=== PATIENT | female | born 1990 | race Caucasian/White ===

== ENCOUNTER 2017-12-21 18:02 | Emergency (ER) | payer MEDICAID, SELFPAY ==
[2017-12-21 18:03] VITALS: BP 181/116; PULSE 88; RESP 16; TEMP 36.6; O2SAT 100; BMI 38.4
--- NOTE | 2017-12-21 19:25 | NURSING ---
PT ARRIVES C/O N/T TO ALL LEFT EXTREMITIES, SHAKIRA LEFT FOOT AN ELBOW, INCLUDING PINS/NEEDLES. ALSO REPORTS INCREASE IN PAIN TO KNEES ELBOWS AND BACK. 6-8 WEEKS . OBGYN RECOMMENDED ED IF NO RELIEF WAS FOUND BY TODAY. REPORTS INCREASE IN FORGETFULNESS.
[2017-12-21 21:12] VITALS: BP 210/130
--- NOTE | 2017-12-21 21:19 | EKG12_ITS ---
Test Reason : NUMBNESS/TINGLING Blood Pressure : / mmHG Vent. Rate : 078 BPM Atrial Rate : 078 BPM P-R Int : 146 ms QRS Dur : 086 ms QT Int : 394 ms P-R-T Axes : 006 068 036 degrees QTc Int : 449 ms Normal sinus rhythm Normal ECG Confirmed by SHITAL WOODY MD ([id number]), television news video editor JOANNA DE LA ROSA ([id number]) on 12/26/2017 2:23:57 PM Referred By: AYUSH Confirmed By:SHITAL WOODY MD
--- NOTE | 2017-12-21 21:22 | ED.RN ---
NO OLD EKG'S IN MUSE
[2017-12-21 21:23] VITALS: BP 190/108
--- NOTE | 2017-12-21 21:25 | RAD_ITS ---
STUDY: X-RAY CHEST REASON FOR EXAM: Female, 27 years old. Pain TECHNIQUE: Frontal view of the chest COMPARISON: None. FINDINGS: The lungs are clear. There are no pleural effusions. There is no pneumothorax. The heart is normal in size. The visualized osseous structures are within normal limits. RAD/Chest 1 View (Portable) IMPRESSION: No acute thoracic pathology. Electronically Signed: Be Lopez, at 21:46 EST Tel , Service support ,
[2017-12-21 21:39] LABS: Absolute Lymphocyte Count 2.53 X10^3/ul (0.83-4.51); Absolute Neutrophil Count 5.5 X10^3/uL (2.0-7.7); Basophil# 0.02 X10^3/uL; Basophil% 0.2 % (0-1); Eosinophil# 0.23 X10^3/uL; Eosinophils% 2.6 % (0-5); Hematocrit 38.8 % (37-47); Hemoglobin 12.9 g/dl (12.0-15.0); Lymphocyte # 2.53 X10^3/ul (4.0); Lymphocyte % 28.7 % (19-41); Mean Corp Hgb Conc 33.2 g/gl (32-36); Mean Corpuscular Hgb 30.6 pg (27.0-32.0); Mean Corpuscular Volume 92.2 fL (81-99); Mean Platelet Vol. 10.4 fl (6.2-12.0); Monocyte# 0.49 X10^3/uL; Monocyte% 5.6 % (0-10); Neutrophil # 5.52 X10^3/uL (2.7-7.7); Neutrophil % 62.7 % (47-70); Platelet Count 185 K/mm3 (150-450); RBC Distribution Width CV 13.5 % (11.6-14.6); RBC Distribution Width SD 44.8 fl (35.1-43.9); Red Blood Count 4.21 M/mm3 (4.2-5.4); White Blood Count 8.8 K/mm3 (4.4-11.0)
[2017-12-21 21:41] LABS: POSITIVE COUNT NO; POSITIVE DIFFERENTIAL NO; POSITIVE MORPHOLOGY NO
[2017-12-21 21:45] LABS: International Normalized Ratio 1.1; Prothrombin Time (Protime)PT. 13.8 SECONDS (11.7-14.9)
[2017-12-21 21:54] LABS: ALB/GLOB Ratio 1.2 RATIO (0.9-2.4); AST(SGOT) 21 U/L (15-37); Alanine Aminotransfer ALT/SGPT 17 U/L (13-56); Albumin, Serum 3.6 g/dL (3.2-5.0); Alkaline Phosphatase 56 U/L (45-117); Anion Gap 6 (5-15); BUN 5 mg/dL (7-18); BUN/Creat Ratio 6.5 RATIO (10-20); Calcium,Total 8.1 mg/dL (8.5-10.1); Chloride 108 mmol/L (98-107); Creatinine, Serum 0.77 mg/dL (0.55-1.02); EST Glomerular Filtration Rate 95 mL/min (>60); Est Glom Filt Rate - Afr Amer 115 mL/min (>60); Estimated Creatinine Clearance 87.57 ml/min; Globulin 3.1 g/dL (2.2-4.2); Glucose 87 mg/dL (74-106); Potassium 3.7 mmol/L (3.5-5.1); Protein, Total 6.7 g/dL (6.4-8.2); Sodium Level 141 mmol/L (136-145)
[2017-12-21 22:25] LABS: Mucous, Urine 0 SEEN /hpf (<or=2+)
[2017-12-21 22:29] LABS: Color, Urine Yellow (Yellow); Glucose, Dipstick Normal (Normal); Ketone-Dipstick Negative (Negative); Leukocyte Esterase-Dipstick 25 /ul (Negative); Nitrite-Dipstick Positive (Negative); Occult Blood-Urine 25 /ul (Negative); Protein-Dipstick Negative (Negative); Urine Bilirubin Dipstick Negative (Negative); Urine Clarity Cloudy (Clear); Urine Urobilinogen Normal (Normal)
[2017-12-21 22:35] LABS: Bacteria 3+ /hpf (None Seen); Red Blood Cells-Urine 0-5 SEEN /hpf (0-5); Squamous Epithelial Cells - UA 0-5 SEEN /hpf (5-10); White Blood Cells 0-5 SEEN /hpf (0-5)
--- NOTE | 2017-12-21 22:46 | US_ITS ---
STUDY: VENOUS DOPPLER ULTRASOUND - BILATERAL LOWER EXTREMITIES REASON FOR EXAM: Female, 27 years old. Pain and swelling TECHNIQUE: Ultrasound evaluation of the deep vein system to include bansal-scale imaging and compression was performed. Bansal-scale imaging and Doppler sonographic evaluation, including duplex spectral analysis and qualitative color flow sonography, was performed. COMPARISON: None. FINDINGS: RIGHT LEG Common Femoral Vein: Normal compression, spontaneity and augmentation. Normal color Doppler. Common Femoral Vein/Greater Saphenous Junction: Normal compression, spontaneity and augmentation. Normal color Doppler. Deep Femoral Vein: Normal compression, spontaneity and augmentation. Normal color Doppler. Superficial Femoral Proximal: Normal compression, spontaneity and augmentation. Normal color Doppler. Superficial Femoral Middle: Normal compression, spontaneity and augmentation. Normal color Doppler. Superficial Femoral Distal: Normal compression, spontaneity and augmentation. Normal color Doppler. Popliteal Vein: Normal compression, spontaneity and augmentation. Normal color Doppler. Posterior Tibial Vein: Normal compression, spontaneity and augmentation. Normal color Doppler. Peroneal Vein: Normal compression, spontaneity and augmentation. Normal color Doppler. The visualized soft tissues are unremarkable. LEFT LEG Common Femoral Vein: Normal compression, spontaneity and augmentation. Normal color Doppler. Common Femoral Vein/Greater Saphenous Junction: Normal compression, spontaneity and augmentation. Normal color Doppler. Deep Femoral Vein: Normal compression, spontaneity and augmentation. Normal color Doppler. Superficial Femoral Proximal: Normal compression, spontaneity and augmentation. Normal color Doppler. Superficial Femoral Middle: Normal compression, spontaneity and augmentation. Normal color Doppler. Superficial Femoral Distal: Normal compression, spontaneity and augmentation. Normal color Doppler. Popliteal Vein: Normal compression, spontaneity and augmentation. Normal color Doppler. Posterior Tibial Vein: Normal compression, spontaneity and augmentation. Normal color Doppler. Peroneal Vein: Normal compression, spontaneity and augmentation. Normal color Doppler. The visualized soft tissues are unremarkable. US/Venous Duplex Imag/Dewayne Extrem IMPRESSION: Normal venous Doppler ultrasound of the bilateral lower extremities. Electronically Signed: Be Lopez, at 23:38 EST Tel , Service support ,
--- NOTE | 2017-12-21 23:53 | ED.VISSUMM ---
- ER Visit Summary Date of Service: 12/21/17 Chief Complaint: Bilateral leg pain History of Present Illness: The patient is a 27 F who presents with bilateral leg pain. She complains of aching lower back pain which radiates into the buttocks left greater than right she also gets aching pain down her legs and gets a pins and needles sensation or numbness at times. She denies any fever abdominal pain urinary retention fecal incontinence back surgeries or history of IV drug use. Physical Examination: Initial blood pressure 181/116 vitals otherwise unremarkable Moist mucous membranes Heart regular rate and rhythm Lungs clear Abdomen soft Paraspinal lumbar tenderness no midline pain Tenderness of bilateral legs but no edema no erythema easily palpable bilateral dorsalis pedis pulses with brisk capillary refill normal sensation 5 out of 5 dorsiflexion, plantarflexion, extensor hallucis longus negative straight leg raise bilaterally Test Results: EKG shows sinus rhythm at a rate of 78. CBC CMP unremarkable. INR 1.1. Urinalysis shows positive nitrites and 3+ bacteria. Chest x-ray shows no acute process. Venous duplex negative. Emergency Department Course and Treatment: Patient's leg symptoms are consistent with a lumbar radiculopathy. She has no signs or symptoms of acute surgical pathology such as epidural abscess or cauda equina syndrome. She is neurovascularly intact with no edema strong pulses and negative venous duplexes. She does have severely elevated blood pressure. However she does not have symptoms of this such as chest pain shortness of breath lightheadedness or headache. EKG was normal. I did speak to Dr. Hernandez and the patient will follow up with [facility] as an outpatient. We will start the patient on labetalol. Patient was given prescriptions for labetalol as well as macrobid for a UTI and prednisone for lumbar radiculopathy. She understands return for new or worsening symptoms. She will be signed out to the oncoming physician to reevaluate after dose of labetalol here but if improving she can be discharged. Treatment Plan: [] Disposition: Discharge Impression: Lumbar radiculopathy Hypertension UTI This note was generated with [employer] dictation software. It may contain incorrect words, spelling, and punctuation that were not noted in review of the chart prior to signing ED Disposition - Plan for ED Patient: Chief Complaint: Numb/Ting Referrals: Lexis Lewis NP-C [Primary Care Provider] -
--- NOTE | 2017-12-21 23:57 | ED.DCSUM_ITS ---
- ER Visit Summary Date of Service: 12/21/17 Chief Complaint: Bilateral leg pain History of Present Illness: The patient is a 27 F who presents with bilateral leg pain. She complains of aching lower back pain which radiates into the buttocks left greater than right she also gets aching pain down her legs and gets a pins and needles sensation or numbness at times. She denies any fever abdominal pain urinary retention fecal incontinence back surgeries or history of IV drug use. Physical Examination: Initial blood pressure 181/116 vitals otherwise unremarkable Moist mucous membranes Heart regular rate and rhythm Lungs clear Abdomen soft Paraspinal lumbar tenderness no midline pain Tenderness of bilateral legs but no edema no erythema easily palpable bilateral dorsalis pedis pulses with brisk capillary refill normal sensation 5 out of 5 dorsiflexion, plantarflexion, extensor hallucis longus negative straight leg raise bilaterally Test Results: EKG shows sinus rhythm at a rate of 78. CBC CMP unremarkable. INR 1.1. Urinalysis shows positive nitrites and 3+ bacteria. Chest x-ray shows no acute process. Venous duplex negative. Emergency Department Course and Treatment: Patient's leg symptoms are consistent with a lumbar radiculopathy. She has no signs or symptoms of acute surgical pathology such as epidural abscess or cauda equina syndrome. She is neurovascularly intact with no edema strong pulses and negative venous duplexes. She does have severely elevated blood pressure. However she does not have symptoms of this such as chest pain shortness of breath lightheadedness or headache. EKG was normal. I did speak to Dr. Hernandez and the patient will follow up with [facility] as an outpatient. We will start the patient on labetalol. Patient was given prescriptions for labetalol as well as macrobid for a UTI and prednisone for lumbar radiculopathy. She understands return for new or worsening symptoms. She will be signed out to the oncoming physician to reevaluate after dose of labetalol here but if improving she can be discharged. Treatment Plan: [] Disposition: Discharge Impression: Lumbar radiculopathy Hypertension UTI This note was generated with [employer] dictation software. It may contain incorrect words, spelling, and punctuation that were not noted in review of the chart prior to signing ED Disposition - Plan for ED Patient: Chief Complaint: Numb/Ting Referrals: Lexis Lewis NP-C [Primary Care Provider] -
--- NOTE | 2017-12-21 23:57 | ED.DEP ---
ED Disposition - Plan for ED Patient: Chief Complaint: Numb/Ting Instructions: ED Sciatica, ED Hypertension Poss, ED UTI Cystitis Female Prescriptions: Nitrofurantoin Macrocrystals [Macrobid] 100 mg PO Q12 #14 cap Prednisone [Deltasone] 60 mg PO DAILY #15 tab Labetalol [Trandate (Beta Dion)] 100 mg PO BID #60 tab Referrals: Lexis Lewis, AIDEN-C [Primary Care Provider] - Maria Isabel Larson MD [STAFF PHYSICIAN] -
[2017-12-22 00:11] VITALS: BP 172/91; PULSE 78; RESP 17
[2017-12-22] MEDS: Labetalol 100 MG Tablet PO (00:11)
[2017-12-22] MEDS: Acetaminophen 500 MG Tablet 1000 MG PO (00:34)
--- NOTE | 2017-12-22 01:20 | ED.VISSUMM ---
- ER Visit Summary Date of Service: 12/22/17 Addendum: Patient was checked out maybe for a period of observation following labetalol. Her blood pressures decreased to 172/91. She continues to complain of severe back pain despite the Tylenol. She is given a dose of morphine IV. Treatment Plan: The patient will be discharged on Motrin and Percocet for pain. Follow-up as per Dr. Hernandez's dictation. This note was generated with [employer] dictation software. It may contain incorrect words, spelling, and punctuation that were not noted in review of the chart prior to signing ED Disposition - Plan for ED Patient: Chief Complaint: Numb/Ting Instructions: ED Hypertension Poss, ED Sciatica, ED UTI Cystitis Female Prescriptions: Oxycodone HCl/Acetaminophen [Percocet 5/325] 1 tab PO Q6H PRN PRN 3 Days #12 tab PRN Reason: Pain Ibuprofen [Motrin] 800 mg PO TID PRN PRN #20 tab PRN Reason: Pain Nitrofurantoin Macrocrystals [Macrobid] 100 mg PO Q12 #14 cap Prednisone [Deltasone] 60 mg PO DAILY #15 tab Labetalol [Trandate (Beta Dion)] 100 mg PO BID #60 tab Referrals: Maria Isabel Larson MD [STAFF PHYSICIAN] - Lexis Lewis NP-C [Primary Care Provider] -
[2017-12-22] MEDS: Ketorolac 30 MG/ML Syringe IV (01:27)
[2017-12-22] MEDS: oxyCODONE 5 MG Tablet PO (01:32)
[2017-12-22 01:45] VITALS: BP 158/67; PULSE 72; RESP 18; O2SAT 98
== END 2017-12-22 02:24 | disposition home or self-care (01) ==
PROVIDERS: Emergency Provider Emergency Medicine; Family Provider Nurse Practitioner Family; PCP Nurse Practitioner Family
DX: O26.891 Other specified pregnancy related conditions, first trimester (principal); M54.16 Radiculopathy, lumbar region; O23.41 Unspecified infection of urinary tract in pregnancy, first trimester; O16.1 Unspecified maternal hypertension, first trimester; Z3A.01 Less than 8 weeks gestation of pregnancy
CPT/HCPCS: 71045; 80053; 81001; 85025; 85610; 93005; 93970; 96374; 96375; 99285; A4216

== ENCOUNTER → 2017-12-23 14:05 | Outpatient (CLI) | payer MEDICAID, SELFPAY ==
[2017-12-23 20:52] LABS: Chlamydia Trachomatis by PCR Negative (Negative); Neisserai gonorrhoeae by PCR Negative (Negative); Probe Check PASS; Sample Adequacy Control PASS; Specimen Processing Control PASS
[2018-01-02 14:52] LABS: HPV Reflexed? NOT INDICATED
== END ==
PROVIDERS: Visit Provider Obstetrics & Gynecology
DX: Z11.3 Encounter for screening for infections with a predominantly sexual mode of transmission (principal); Z12.4 Encounter for screening for malignant neoplasm of cervix
CPT/HCPCS: 87491; 87591; 88175; G0145

== ENCOUNTER 2017-12-24 22:25 | Emergency (ER) | payer MEDICAID, SELFPAY ==
[2017-12-24 22:25] VITALS: BP 208/119; PULSE 90; RESP 18; TEMP 36.4; O2SAT 97; BMI 38.2
--- NOTE | 2017-12-24 22:50 | ED.VISSUMM ---
- ER Visit Summary Date of Service: 12/24/17 Chief Complaint: Elevated blood pressure History of Present Illness: The patient is a 27 F no significant past medical history. She is Ab0. Never had hypertension with her other 2 pregnancies. Was seen in the ER 2 days ago diagnosed with hypertension and placed on labetalol. She is also been having low back pain. She is followed up with her [employer] Dr. Christal Jackson she is adjusted her labetalol dose. Patient denies any other symptoms no headache. No chest pain. No shortness of breath. No abdominal pain. No vaginal bleeding. She presents tonight again with elevated blood pressure. Physical Examination: Well-appearing young female. Her initial blood pressures reportedly 208/119. Otherwise her vital signs are stable afebrile. Her pulse ox is 97%. She is in no distress. Having no other symptoms. HEENT exam is normal. Neck is nontender no lymphadenopathy. Lungs are clear to auscultation bilaterally. Heart is regular rhythm no murmur. Abdomen is soft and nontender. Normal bowel sounds no peritoneal signs. Extremities she moves all 4. They are neurovascularly intact. She has normal motor strength and sensation of both the upper and lower extremities. Normal dorsi plantarflexion. Normal detonator assembler strength. There is no edema. Back exam is nontender unremarkable. Neurologically she is awake and alert without focal motor or sensory deficits. Test Results: Clinically no tests are necessary. Emergency Department Course and Treatment: Nurses will repeat the patient's blood pressure. Repeat exam at 2330 the patient's blood pressure is 158/93. I discussed with the patient and her female friend in the room. He can continue on her current blood pressure medications. Log her blood pressures twice daily and follow-up with her [employer] TEAM LEAD to adjust her medications as needed. Treatment Plan: [] Disposition: Discharge Impression: Elevated blood pressure with recent diagnosis of hypertension First trimester This note was generated with [employer] dictation software. It may contain incorrect words, spelling, and punctuation that were not noted in review of the chart prior to signing ED Disposition - Plan for ED Patient: Chief Complaint: Hypertension Referrals: Lexis Lewis, AIDEN-C [Primary Care Provider] -
--- NOTE | 2017-12-24 23:32 | ED.DCSUM_ITS ---
- ER Visit Summary Date of Service: 12/24/17 Chief Complaint: Elevated blood pressure History of Present Illness: The patient is a 27 F no significant past medical history. She is Ab0. Never had hypertension with her other 2 pregnancies. Was seen in the ER 2 days ago diagnosed with hypertension and placed on labetalol. She is also been having low back pain. She is followed up with her [facility] Dr. Christal Jackson she is adjusted her labetalol dose. Patient denies any other symptoms no headache. No chest pain. No shortness of breath. No abdominal pain. No vaginal bleeding. She presents tonight again with elevated blood pressure. Physical Examination: Well-appearing young female. Her initial blood pressures reportedly 208/119. Otherwise her vital signs are stable afebrile. Her pulse ox is 97%. She is in no distress. Having no other symptoms. HEENT exam is normal. Neck is nontender no lymphadenopathy. Lungs are clear to auscultation bilaterally. Heart is regular rhythm no murmur. Abdomen is soft and nontender. Normal bowel sounds no peritoneal signs. Extremities she moves all 4. They are neurovascularly intact. She has normal motor strength and sensation of both the upper and lower extremities. Normal dorsi plantarflexion. Normal suspender cutter strength. There is no edema. Back exam is nontender unremarkable. Neurologically she is awake and alert without focal motor or sensory deficits. Test Results: Clinically no tests are necessary. Emergency Department Course and Treatment: Nurses will repeat the patient's blood pressure. Repeat exam at 2330 the patient's blood pressure is 158/93. I discussed with the patient and her female friend in the room. He can continue on her current blood pressure medications. Log her blood pressures twice daily and follow-up with her [facility] to adjust her medications as needed. Treatment Plan: [] Disposition: Discharge Impression: Elevated blood pressure with recent diagnosis of hypertension First trimester This note was generated with [employer] dictation software. It may contain incorrect words, spelling, and punctuation that were not noted in review of the chart prior to signing ED Disposition - Plan for ED Patient: Chief Complaint: Hypertension Referrals: Lexis Lewis, AIDEN-C [Primary Care Provider] -
--- NOTE | 2017-12-24 23:33 | DCINST.ED_ITS ---
ED Disposition - Plan for ED Patient: Disposition: Home or Assisted Living Chief Complaint: Hypertension Instructions: ED HTN Established Referrals: Maria Isabel Larson MD [STAFF PHYSICIAN] - As soon as possible Additional Instructions: Log your blood pressures twice daily. Follow-up with her primary [employer] WORK[employer]PRENT[employer] physician and she can adjust her medications as needed.
[2017-12-24 23:37] VITALS: BP 165/97; PULSE 84; RESP 16
--- NOTE | 2017-12-24 23:57 | ED.RN ---
DISCHARGE INSTRUCTIONS GIVEN TO AND REVIEWED WITH PATIENT, PATIENT DENIES QUESTIONS OR CONCERNS AND VOICES UNDERSTANDING OF DISCHARGE INSTRUCTIONS. PT AMBULATES OUT OF ROOM WITHOUT DIFFICULTY.
== END 2017-12-24 23:58 | disposition home or self-care (01) ==
PROVIDERS: Emergency Provider Emergency Medicine; Family Provider Nurse Practitioner Family; PCP Nurse Practitioner Family
DX: O16.1 Unspecified maternal hypertension, first trimester (principal); O99.331 Smoking (tobacco) complicating pregnancy, first trimester; Z79.891 Long term (current) use of opiate analgesic; Z79.899 Other long term (current) drug therapy; Z3A.08 8 weeks gestation of pregnancy

== ENCOUNTER → 2018-01-04 09:01 | Outpatient (CLI) | payer MEDICAID, SELFPAY ==
[2018-01-04 10:45] LABS: Color, Urine Yellow (Yellow); Glucose, Dipstick Normal (Normal); Ketone-Dipstick Negative (Negative); Leukocyte Esterase-Dipstick 25 /ul (Negative); Nitrite-Dipstick Negative (Negative); Occult Blood-Urine Negative /ul (Negative); Protein-Dipstick Negative (Negative); Urine Bilirubin Dipstick Negative (Negative); Urine Clarity Clear (Clear); Urine Urobilinogen Normal (Normal)
[2018-01-04 10:57] LABS: Absolute Lymphocyte Count 0.97 X10^3/ul (0.83-4.51); Absolute Neutrophil Count 5.1 X10^3/uL (2.0-7.7); Basophil# 0.02 X10^3/uL; Basophil% 0.3 % (0-1); Eosinophil# 0.22 X10^3/uL; Eosinophils% 3.3 % (0-5); Hematocrit 36.3 % (37-47); Hemoglobin 12.2 g/dl (12.0-15.0); Lymphocyte # 0.97 X10^3/ul (4.0); Lymphocyte % 14.4 % (19-41); Mean Corp Hgb Conc 33.6 g/gl (32-36); Mean Corpuscular Hgb 30.9 pg (27.0-32.0); Mean Corpuscular Volume 91.9 fL (81-99); Mean Platelet Vol. 10.3 fl (6.2-12.0); Monocyte# 0.39 X10^3/uL; Monocyte% 5.8 % (0-10); Neutrophil # 5.12 X10^3/uL (2.7-7.7); Neutrophil % 76.1 % (47-70); Platelet Count 142 K/mm3 (150-450); RBC Distribution Width CV 13.3 % (11.6-14.6); RBC Distribution Width SD 44.4 fl (35.1-43.9); Red Blood Count 3.95 M/mm3 (4.2-5.4); White Blood Count 6.7 K/mm3 (4.4-11.0)
[2018-01-04 10:58] LABS: POSITIVE COUNT NO; POSITIVE DIFFERENTIAL NO; POSITIVE MORPHOLOGY NO
[2018-01-04 11:16] LABS: Amphetamine Urine VISTA NEGATIVE (<1000 ng/mL); Barbiturate Urine VISTA NEGATIVE (< 200 ng/mL); Benzodiazepine Urine VISTA NEGATIVE (< 200 ng/mL); Cocaine Urine VISTA NEGATIVE (< 300 ng/mL); Ecstacy Urine VISTA POSITIVE (< 500 ng/mL); Methadone Urine VISTA NEGATIVE (< 300 ng/mL); PCP Urine VISTA NEGATIVE (< 25 ng/mL); THC Urine VISTA NEGATIVE (< 50 ng/mL); Vista UDS pH Range 7
[2018-01-04 11:18] LABS: ALB/GLOB Ratio 1.1 RATIO (0.9-2.4); AST(SGOT) 9 U/L (15-37); Alanine Aminotransfer ALT/SGPT 20 U/L (13-56); Albumin, Serum 3.4 g/dL (3.2-5.0); Alkaline Phosphatase 59 U/L (45-117); Anion Gap 8 (5-15); BUN 10 mg/dL (7-18); BUN/Creat Ratio 14.4 RATIO (10-20); Calcium,Total 8.2 mg/dL (8.5-10.1); Chloride 106 mmol/L (98-107); Creatinine, Serum 0.69 mg/dL (0.55-1.02); EST Glomerular Filtration Rate 108 mL/min (>60); Est Glom Filt Rate - Afr Amer 131 mL/min (>60); Globulin 3.1 g/dL (2.2-4.2); Glucose 82 mg/dL (74-106); Potassium 3.4 mmol/L (3.5-5.1); Protein, Total 6.5 g/dL (6.4-8.2); Sodium Level 139 mmol/L (136-145); Thyroid Stim Hormone (TSH) 0.92 uIU/mL (0.358-3.74)
[2018-01-04 12:39] LABS: HIV - WCH Non-Reactive (Nonreactive); Rubella IgG 89.4 IU/mL
[2018-01-05 12:57] LABS: HEPATITIS B SURFACE AG Negative (Negative); Hep C Antibodies 0.1 s/co ratio (0.0-0.9)
[2018-01-06 03:11] LABS: Prenatal RPR NONREACTIVE (NONREACTIVE)
== END ==
PROVIDERS: Visit Provider Obstetrics & Gynecology
DX: O16.9 Unspecified maternal hypertension, unspecified trimester (principal); Z3A.00 Weeks of gestation of pregnancy not specified
CPT/HCPCS: 36415; 80053; 80307; 81002; 84443; 85025; 86703; 86762; 86803; 87340

== ENCOUNTER → 2018-01-05 09:52 | Outpatient (CLI) | payer MEDICAID, SELFPAY | PROVIDERS: Family Provider Family Medicine; PCP Family Medicine; Visit Provider Family Medicine | DX: O99.89 Other specified diseases and conditions complicating pregnancy, childbirth and the puerperium (principal); R82.71 Bacteriuria; Z3A.00 Weeks of gestation of pregnancy not specified; O16.9 Unspecified maternal hypertension, unspecified trimester | CPT/HCPCS: 81050; 82384; 83835; 87086; 87088; 87186 ==

== ENCOUNTER → 2018-01-05 10:26 | Outpatient (CLI) | payer MEDICAID, SELFPAY ==
[2018-01-11 09:09] LABS: Dopamine, UR 89 ug/L (Undefined); Epinephrine, 24Ur 2 ug/24 hr (0-20); Epinephrine, Ur 1 ug/L (Undefined); Metanephrine, Ur 30 ug/L (Undefined); Norepinephrine, 24Ur 22 ug/24 hr (0-135); Norepinephrine, Ur 13 ug/L (Undefined); Normetanephrines, Ur 108 ug/L (Undefined)
[2018-01-12 15:28] LABS: Dopamine, 24Ur 151 ug/24 hr (0-510); Metanephrines, 24Ur 51 ug/24 hr (45-290); Normetanephrines, 24Ur 184 ug/24 hr (82-500)
== END ==
PROVIDERS: Visit Provider Obstetrics & Gynecology
DX: I10 Essential (primary) hypertension (principal)
CPT/HCPCS: 81050; 82384; 83835

== ENCOUNTER → 2018-01-06 15:56 | Outpatient (CLI) | payer MEDICAID, SELFPAY ==
[2018-01-11 03:07] LABS: VMA, UR 1.3 mg/L (Undefined)
[2018-01-11 11:25] LABS: VMA, 24UR 2.7 mg/24 hr (0.0-7.5)
== END ==
PROVIDERS: Visit Provider Obstetrics & Gynecology
DX: O16.9 Unspecified maternal hypertension, unspecified trimester (principal); Z3A.00 Weeks of gestation of pregnancy not specified
CPT/HCPCS: 81050; 84585

== ENCOUNTER → 2018-01-17 14:56 | Outpatient (CLI) | payer MEDICAID, SELFPAY | PROVIDERS: Family Provider Family Medicine; PCP Family Medicine; Visit Provider Obstetrics & Gynecology | DX: O16.1 Unspecified maternal hypertension, first trimester (principal); O99.280 Endocrine, nutritional and metabolic diseases complicating pregnancy, unspecified trimester; E03.9 Hypothyroidism, unspecified; Z3A.00 Weeks of gestation of pregnancy not specified | CPT/HCPCS: 36415; 82306; 87086; 87088; 87186 ==

== ENCOUNTER → 2018-02-14 14:20 | Outpatient (CLI) | payer MEDICAID, SELFPAY | PROVIDERS: Visit Provider Obstetrics & Gynecology | DX: O23.40 Unspecified infection of urinary tract in pregnancy, unspecified trimester (principal); Z3A.00 Weeks of gestation of pregnancy not specified | CPT/HCPCS: 87086; 87088; 87186 ==

== ENCOUNTER → 2018-03-31 13:12 | Outpatient (CLI) | payer MEDICAID, SELFPAY | PROVIDERS: Family Provider Family Medicine; PCP Family Medicine; Visit Provider Obstetrics & Gynecology | DX: Z34.82 Encounter for supervision of other normal pregnancy, second trimester (principal); N39.0 Urinary tract infection, site not specified | CPT/HCPCS: 87086; 87088; 87186 ==

== ENCOUNTER → 2018-04-20 16:46 | Outpatient (CLI) | payer MEDICAID, SELFPAY ==
[2018-04-20 17:41] LABS: Hematocrit 32.3 % (37-47); Hemoglobin 10.9 g/dl (12.0-15.0); Mean Corp Hgb Conc 33.7 g/gl (32-36); Mean Corpuscular Hgb 32.1 pg (27.0-32.0); Mean Platelet Vol. 10.7 fl (6.2-12.0); Platelet Count 206 K/mm3 (150-450); RBC Distribution Width CV 12.7 % (11.6-14.6); RBC Distribution Width SD 42.9 fl (35.1-43.9); White Blood Count 11.6 K/mm3 (4.4-11.0)
[2018-04-20 17:43] LABS: Scan Indicated on CBC? Y/N NO
[2018-04-20 18:09] LABS: ALB/GLOB Ratio 0.7 RATIO (0.9-2.4); AST(SGOT) 10 U/L (15-37); Alanine Aminotransfer ALT/SGPT 13 U/L (13-56); Albumin, Serum 2.8 g/dL (3.2-5.0); Alkaline Phosphatase 74 U/L (45-117); Anion Gap 8 (5-15); BUN 8 mg/dL (7-18); BUN/Creat Ratio 8.7 RATIO (10-20); Calcium,Total 9.4 mg/dL (8.5-10.1); Chloride 105 mmol/L (98-107); Creatinine, Serum 0.92 mg/dL (0.55-1.02); EST Glomerular Filtration Rate 78 mL/min (>60); Est Glom Filt Rate - Afr Amer 95 mL/min (>60); Globulin 3.8 g/dL (2.2-4.2); Glucose 80 mg/dL (74-106); Potassium 3.6 mmol/L (3.5-5.1); Protein, Total 6.6 g/dL (6.4-8.2); Sodium Level 140 mmol/L (136-145); Uric Acid 5.4 mg/dL (2.6-6.0)
[2018-04-21 14:35] LABS: Ferritin 18 ng/mL (8-252)
== END ==
PROVIDERS: Visit Provider Obstetrics & Gynecology
DX: Z34.82 Encounter for supervision of other normal pregnancy, second trimester (principal); I10 Essential (primary) hypertension; D64.9 Anemia, unspecified
CPT/HCPCS: 36415; 80053; 82728; 84550; 85027

== ENCOUNTER → 2018-04-25 11:54 | Outpatient (CLI) | payer MEDICAID, SELFPAY ==
--- NOTE | 2018-04-25 12:33 | ECHOD_ITS ---
Reason For Study: HTN Procedure This was a 2D Doppler, Color Flow transthoracic echocardiogram. The exam was of adequate technical quality. Exam performed in department. Left Ventricle Normal LV size. Moderate to severe concentric left ventricular hypertrophy. Left ventricular systolic function is normal. Diastolic function: considered indeterminate. No regional wall motion abnormalities noted. Right Ventricle Normal RV size. Normal systolic function. Atria The left atrium is mildly enlarged. Normal right atrium. No doppler evidence for ASD. Mitral Valve There is no mitral annular calcification. Normal mitral valve. Trivial mitral valve insufficiency. Tricuspid Valve Normal tricuspid valve. Trivial tricuspid valve insufficiency. Aortic Valve Trisinus/trileaflet aortic valve. Normal aortic valve. Pulmonic Valve The pulmonic valve is not well visualized. Trivial pulmonic valve insufficiency. Great Vessels Normal sized aortic root. Pericardium/Pleural Trivial pericardial effusion. There are no echocardiographic indications of cardiac tamponade. MMode/2D Measurements & Calculations LVIDd: 4.8 cm IVSd: 1.8 cm Ao root diam: 3.0 cm LVIDs: 3.2 cm LVPWd: 1.6 cm FS: 34.8 % LAV(MOD-bp): 76.8 ml LA A4 area: 21.7 cm2 RA A4 area: 12.9 cm2 LAV(MOD-bp) Indexed: 38.8 ml/m2 LAV(MOD-sp2): 83.1 ml LAV(MOD-sp4): 71.9 ml Doppler Measurements & Calculations MV E max dave: 71.2 cm/sec Lat Peak E' Dave: 7.7 cm/sec Med Peak E' Dave: 6.0 cm/sec MV A max dave: 60.9 cm/sec E/E' lat: 9.3 E/E' med: 11.8 MV E/A: 1.2 Ao V2 max: 147.5 cm/sec LV V1 max: 106.1 cm/sec PA V2 max: 89.8 cm/sec Ao max P.7 mmHg LV V1 max P.5 mmHg Interpretation Summary Left ventricular systolic function is normal. Moderate to severe concentric left ventricular hypertrophy. The left atrium is mildly enlarged. Trivial mitral valve insufficiency. Trivial tricuspid valve insufficiency. Trivial pulmonic valve insufficiency. Trivial pericardial effusion. There are no echocardiographic indications of cardiac tamponade. Diastolic function: considered indeterminate. Ordering Physician: Maria Isabel Larson Referring Physician: Claritza Olmedo Performed By: Anayeli Luke RDCS
[2018-04-25 12:51] LABS: 24 Hour Urine Protein 277.1 mg/24HR (<150 MG/24HR); 24HR. UA Prot. Total Volume 1700 mL; 24HR. Urine Creatinine 1.11 g/24 HR (0.70-1.90); Urine Protein (24 Hour) 16.3 mg/dL (<11.9)
--- NOTE | 2018-04-25 13:14 | EKG12_ITS ---
Test Reason : HTN Blood Pressure : / mmHG Vent. Rate : 081 BPM Atrial Rate : 081 BPM P-R Int : 178 ms QRS Dur : 084 ms QT Int : 386 ms P-R-T Axes : 052 084 025 degrees QTc Int : 448 ms Normal sinus rhythm Normal ECG Confirmed by ANNALISE MONTES, SHITAL ([id number]), newspaper copy editor JOANNA DE LA ROSA ([id number]) on 05/01/2018 2:05:40 PM Referred By: Maria Isabel Larson Confirmed By:SHITAL WOODY MD
== END ==
PROVIDERS: Family Provider Family Medicine; PCP Family Medicine; Visit Provider Obstetrics & Gynecology
DX: O16.2 Unspecified maternal hypertension, second trimester (principal); Z3A.00 Weeks of gestation of pregnancy not specified
CPT/HCPCS: 82570; 84156; 93005; 93306

== ENCOUNTER → 2018-04-27 13:21 | Outpatient (CLI) | payer MEDICAID, SELFPAY ==
[2018-04-27 15:46] LABS: Hematocrit 32.7 % (37-47); Hemoglobin 11.2 g/dl (12.0-15.0); Mean Corp Hgb Conc 34.3 g/gl (32-36); Mean Corpuscular Hgb 32.5 pg (27.0-32.0); Mean Corpuscular Volume 94.8 fL (81-99); Mean Platelet Vol. 10.8 fl (6.2-12.0); Platelet Count 186 K/mm3 (150-450); RBC Distribution Width CV 12.6 % (11.6-14.6); RBC Distribution Width SD 42.1 fl (35.1-43.9); Red Blood Count 3.45 M/mm3 (4.2-5.4)
[2018-04-27 15:50] LABS: Scan Indicated on CBC? Y/N NO
[2018-04-27 16:06] LABS: Glucose Challenge Gest 1H 50g 122 mg/dL (70-140)
== END ==
PROVIDERS: Visit Provider Obstetrics & Gynecology
DX: Z34.82 Encounter for supervision of other normal pregnancy, second trimester (principal); R30.0 Dysuria
CPT/HCPCS: 36415; 82950; 85027; 87077; 87086; 87088; 87186

== ENCOUNTER 2018-05-18 16:05 | Outpatient (CLI) | payer MEDICAID, SELFPAY ==
[2018-05-18 16:22] VITALS: BMI 41.8
[2018-05-18] MEDS: Lactated Ringers 1,000 ML 100 ML IV (16:30)
[2018-05-18] MEDS: Betamethasone/Betamethasone 30 MG/5 ML Vial 12 MG IM (16:49)
[2018-05-18 16:50] LABS: Hematocrit 33.3 % (37-47); Hemoglobin 11.2 g/dl (12.0-15.0); Mean Corp Hgb Conc 33.6 g/gl (32-36); Mean Corpuscular Hgb 31.6 pg (27.0-32.0); Mean Corpuscular Volume 94.1 fL (81-99); Mean Platelet Vol. 10.7 fl (6.2-12.0); Platelet Count 176 K/mm3 (150-450); RBC Distribution Width CV 13.2 % (11.6-14.6); RBC Distribution Width SD 45.4 fl (35.1-43.9); Red Blood Count 3.54 M/mm3 (4.2-5.4); White Blood Count 8.7 K/mm3 (4.4-11.0)
[2018-05-18 16:51] LABS: Scan Indicated on CBC? Y/N NO
[2018-05-18 16:52] LABS: International Normalized Ratio 0.9; Prothrombin Time (Protime)PT. 12.4 SECONDS (11.7-14.9)
[2018-05-18 16:53] LABS: Partial Thromboplast Time 28.1 Seconds (24.1-36.2)
[2018-05-18 16:57] LABS: AST(SGOT) 11 U/L (15-37); Alanine Aminotransfer ALT/SGPT 13 U/L (13-56); Creatinine, Serum 0.72 mg/dL (0.55-1.02); EST Glomerular Filtration Rate 103 mL/min (>60); Est Glom Filt Rate - Afr Amer 125 mL/min (>60); Estimated Creatinine Clearance 93.65 ml/min; Uric Acid 5.4 mg/dL (2.6-6.0)
[2018-05-18 17:06] LABS: LDH 152 U/L (84-246)
[2018-05-18 17:31] LABS: Glucose Challenge Gest 1H 50g 99 mg/dL (70-140)
[2018-05-18] MEDS: Magnesium Sulfate 20 GM/500 ML BAG IV (17:36)
[2018-05-18] MEDS: NIFEdipine 10 MG Capsule PO (17:45)
[2018-05-18] MEDS: NIFEdipine 10 MG Capsule 20 MG PO (18:25)
[2018-05-18 18:51] LABS: Protein:Creat Ratio 308 mg/g CRE (0-200)
--- NOTE | 2018-05-18 19:05 | HP.PCM_ITS ---
- Problem List (1) Hypertension affecting in second trimester Status: Acute History and Physical Date of Admission: 05/18/18 History of present illness: Ms. Hendrix is a 27-year-old 3 para 2001 at 27-2/7 weeks gestational age by last menstrual period consistent with a 10 week ultrasound (see HAYDEE August 15, 2018) sent from the office with elevated blood pressure. Her blood pressure in the office was 200/110 and she had 1+ proteinuria. She has a history of chronic hypertension diagnosed in the first trimester and is taking labetalol 600 mg p.o. 3 times daily as well as nifedipine XL 30 mg p.o. twice daily. She reports mild intermittent headache she attributes to her nifedipine occurring shortly after dosing. Her last dose was this morning and denies headache at this time. Denies nausea, vomiting, chest pain, shortness of breath. Fetus is active. No contractions, leaking of fluid or vaginal bleeding. Past medical history: Chronic hypertension BMI 36 and first trimester Current urinary tract infection Past surgical history: section ?2 Home medications: Labetalol 200 mg-3 tabs p.o. 3 times daily -note patient was not tolerated to 800 mg dosing due to vomiting Nifedipine XL 30 mg p.o. twice daily Vitamin D3 5000 international units p.o. daily multivitamin 1 tab p.o. daily [place]-3 fatty acid-1 tab p.o. daily Ferrous sulfate 325 mg p.o. twice daily Colace 100 mg p.o. twice daily as needed constipation Cephalexin 500 mg 1 tab p.o. daily Aspirin 80 mg 1 tab p.o. daily Social History: to same sex partner. 2 sons are healthy. She smokes approximately quarter pack per day. Denies illicit drug use. Issues: Chronic hypertension BMI 36 Recurrent UTI - Ampicillin and Ampicillin/Sulbactam resistant E. coli on 04/27/18 , 03/31/18, 02/14/18 and 01/17/18 Prior C/S x 2 Labs 12/23/2017: chlamydia negative, gonorrhea negative, Pap NILM 01/04/2018: O+/antibody negative, RPR nonreactive, hepatitis C antibody negative , hepatitis B surface antigen negative, rubella IgG immune, HIV nonreactive, TSH 0.92 micro-international units per milliliter, urine tox positive for ecstasy (patient denies and is presumably due to labetalol) 04/25/18: 24h urine protein 277.1mg 04/27/2018 1 hour GTT 122 mg/dL, 24 hour urine protein to 77 mg 05/18/2018 1 hour GTT 99 mg/dL Physical exam: Vejopfw-csif-ahpirvjkm female HEENT-atraumatic normocephalic, anicteric, oropharynx clear Cardiovascular-regular rate and rhythm, no murmurs rubs or gallops appreciated Pulmonary-lungs clear to auscultation bilaterally Abdomen - soft, gravid, nontender, nondistended Fundus-fundal height 28 cm, nontender Extremities-trace bilateral lower extremity edema, no calf tenderness Neurologic-full range of motion of bilateral upper and lower extremities, no gross motor deficits, +1 bilateral lower extremity and upper extremity DTRs, no clonus Psych-alert, oriented to person place and time SVE-deferred heart rate-135, minimal variability, no accelerations, no decelerations Bedside ultrasound shows SEB 16.3 cm, MVP 5.77 cm, fetus is transverse, anterior placenta Laboratory Tests 05/18/18 05/18/18 05/18/18 15:20 15:20 16:30 WBC Cancelled 8.7 Corrected WBC Cancelled RBC Cancelled 3.54 L Hgb Cancelled 11.2 L Hct Cancelled 33.3 L MCV Cancelled 94.1 MCH Cancelled 31.6 MCHC Cancelled 33.6 RDW Cancelled 13.2 RDW Differential Cancelled 45.4 H Plt Count Cancelled 176 MPV Cancelled 10.7 Diff Path Review Cancelled PT INR APTT Creatinine Estim Creat Clear Calc Est GFR (MDRD) Af Amer Est GFR (MDRD) Non-Af Glucose 1 Hr 50 gm 99 Uric Acid AST ALT Lactate Dehydrogenase Blood Type Antibody Screen 05/18/18 05/18/18 05/18/18 16:30 16:30 16:30 WBC Corrected WBC RBC Hgb Hct MCV MCH MCHC RDW RDW Differential Plt Count MPV Diff Path Review PT 12.4 INR 0.9 APTT 28.1 Creatinine 0.72 Estim Creat Clear Calc 93.65 Est GFR (MDRD) Af Amer 125 Est GFR (MDRD) Non-Af 103 Glucose 1 Hr 50 gm Uric Acid 5.4 AST 11 L ALT 13 Lactate Dehydrogenase 152 Blood Type Antibody Screen 05/18/18 16:30 WBC Corrected WBC RBC Hgb Hct MCV MCH MCHC RDW RDW Differential Plt Count MPV Diff Path Review PT INR APTT Creatinine Estim Creat Clear Calc Est GFR (MDRD) Af Amer Est GFR (MDRD) Non-Af Glucose 1 Hr 50 gm Uric Acid AST ALT Lactate Dehydrogenase Blood Type O POSITIVE Antibody Screen NEGATIVE Studies: 04/25/2018: Interpretation Summary Left ventricular systolic function is normal. Moderate to severe concentric left ventricular hypertrophy. The left atrium is mildly enlarged. Trivial mitral valve insufficiency. Trivial tricuspid valve insufficiency. Trivial pulmonic valve insufficiency. Trivial pericardial effusion. There are no echocardiographic indications of cardiac tamponade. Diastolic function: considered indeterminate. 04/27/18: Office US - EFW 700g (48.8nd%) 05/01/2018: EKG demonstrates normal sinus rhythm Assessment and plan: 27 year old [id number] @ 27 2/7wga with chronic hypertension likely exacerbation, rule out superimposed preeclampsia, Cat II FHR, AGA [facility]. She started on IV magnesium therapy for seizure prophylaxis and given IV magnesium 20 mg followed by 40 mg and again 40 mg IV without significant improvement of blood pressures. She received 1 dose of betamethasone IM. She had already taken her morning dose and afternoon dose of her oral labetalol. Maternal- medicine consultation was obtained and she was accepted for transport to [facility] for higher level of care. Given patient had already taken morning and afternoon doses of oral labetalol as well as above IV dosing she was subsequently given nifedipine 10 mg p.o., then 20 mg p.o. nifedipine with blood pressures recovering to 145/78. heart rate has remained category 2 however appropriate for gestational age. Serum studies with wnl, I await random urine protein/creatinine ratio. Will start 24h urine collection. I reviewed with the patient the plan of care for transport and discussed with her my concern for superimposed preeclampsia as well as potential sequela including stroke and maternal seizure. Patient was given an opportunity to ask questions and questions were answered to her satisfaction.
== END 2018-05-18 19:50 | disposition home or self-care (01) ==
LOC: WPOUT 16:14 → WOBLAB 16:18 → WPOUT 16:18 → WP 16:19
PROVIDERS: Visit Provider Obstetrics & Gynecology
DX: O14.92 Unspecified pre-eclampsia, second trimester (principal); Z3A.27 27 weeks gestation of pregnancy; O23.42 Unspecified infection of urinary tract in pregnancy, second trimester
CPT/HCPCS: 96365; 96366; 36415; 51702; 59025; 59050; 76815; 82565; 82570; 82950; 83615; 84156; 84450; 84460; 84550; 85027; 85610; 85730; 86850; 86900; 94760; 96372; 99218; J7120; G0378; J0702

== ENCOUNTER → 2020-12-11 15:46 | Outpatient (CLI) | payer MEDICAID, SELFPAY ==
[2020-12-11 16:49] LABS: Absolute Lymphocyte Count 1.77 X10^3/uL (0.83-4.51); Basophil# 0.05 X10^3/uL; Basophil% 0.9 % (0-1); Eosinophil# 0.31 X10^3/uL; Eosinophils% 5.5 % (0-5); Hematocrit 32.2 % (37-47); Hemoglobin 9.3 g/dL (12.0-15.0); Lymphocyte # 1.77 X10^3/ul (4.0); Lymphocyte % 31.5 % (19-41); Mean Corp Hgb Conc 28.9 g/dL (32-36); Mean Corpuscular Hgb 23.4 pg (27.0-32.0); Mean Corpuscular Volume 80.9 fL (81-99); Mean Platelet Vol. 11.1 fl (6.2-12.0); Monocyte# 0.45 X10^3/uL; NRBC Flagged by Analyzer 0 % (0-5); Neutrophil # 3.03 X10^3/uL (2.7-7.7); Neutrophil % 53.9 % (47-70); Platelet Count 184 K/mm3 (150-450); RBC Distribution Width CV 16.6 % (11.6-14.6); RBC Distribution Width SD 48.5 fl (35.1-43.9); Red Blood Count 3.98 M/mm3 (4.2-5.4); White Blood Count 5.6 K/mm3 (4.4-11.0)
[2020-12-11 18:04] LABS: Anion Gap 4 (5-15); BUN 7 mg/dL (7-18); Calcium,Total 8.7 mg/dL (8.5-10.1); Chloride 107 mmol/L (98-107); Creatinine, Serum 0.88 mg/dL (0.55-1.02); EST Glomerular Filtration Rate 81 mL/min (>60); Est Glom Filt Rate - Afr Amer 98 mL/min (>60); Glucose 90 mg/dL (74-106); Sodium Level 140 mmol/L (136-145)
== END ==
PROVIDERS: PCP Family Medicine; Visit Provider Family Medicine
DX: R03.0 Elevated blood-pressure reading, without diagnosis of hypertension (principal)
CPT/HCPCS: 36415; 80048; 85025

== ENCOUNTER 2021-01-11 00:25 | Emergency (ER) | payer MEDICAID, SELFPAY ==
[2021-01-11 00:25] VITALS: BP 168/97; PULSE 78; RESP 20; TEMP 36.8; O2SAT 100; BMI 30.2
--- NOTE | 2021-01-11 00:35 | CT_ITS ---
STUDY: CT ABDOMEN AND PELVIS WITHOUT CONTRAST REASON FOR EXAM: Female, 30 years old. left flank pain RADIATION DOSAGE (If Supplied By Facility): CTDIvol = ( 13.82 ) mGy, DLP = ( 707.89 ) mGycm TECHNIQUE: Transaxial images were obtained from the dome of the diaphragm to the symphysis pubis without oral contrast, and without intravenous contrast. Sagittal and coronal images were reconstructed. Individualized dose optimization techniques were used for this CT. COMPARISON: None. FINDINGS: The visualized lung bases are unremarkable. The visualized portions of the heart are within normal limits. Normal liver. There are multiple gallstones. Normal spleen. Normal pancreas. Normal bilateral adrenal glands. Normal right kidney. Normal left kidney. Normal visualized stomach. Normal small intestine. Increased fecal debris within the colon which may indicate constipation. Distinct appendix not seen with no inflammation in the region of the cecum. Normal abdominal aorta. Normal inferior vena cava. Normal retroperitoneum. Normal urinary bladder. The uterus is anteverted. Normal abdominal wall. Normal osseous structures. CT/Abdomen/Pelvis without Cont IMPRESSION: Constipation. Multiple gallstones. Otherwise unremarkable CT of the abdomen and pelvis. Electronically Signed: Sarah Art MD at 1:50 EDT , Service support ,
[2021-01-11] MEDS: Morphine 4 MG/ML Syringe IV (00:42)
[2021-01-11] MEDS: Ketorolac 30 MG/ML Syringe IV (00:42)
[2021-01-11] MEDS: Ondansetron 4 MG/2 ML Vial IV (00:43)
[2021-01-11 00:58] LABS: Anion Gap 4 (5-15); BUN 37 mg/dL (7-18); BUN/Creat Ratio 28.5 RATIO (10-20); Calcium,Total 8.7 mg/dL (8.5-10.1); Chloride 102 mmol/L (98-107); EST Glomerular Filtration Rate 51 mL/min (>60); Est Glom Filt Rate - Afr Amer 62 mL/min (>60); Glucose 97 mg/dL (74-106); Potassium 3.9 mmol/L (3.5-5.1); Sodium Level 136 mmol/L (136-145)
[2021-01-11 01:04] LABS: Absolute Lymphocyte Count 2.61 X10^3/uL (0.83-4.51); Absolute Neutrophil Count 6.4 X10^3/uL (2.0-7.7); Basophil# 0.02 X10^3/uL; Basophil% 0.2 % (0-1); Hematocrit 36.8 % (37-47); Hemoglobin 11.1 g/dL (12.0-15.0); Lymphocyte # 2.61 X10^3/ul (4.0); Lymphocyte % 25.9 % (19-41); Mean Corp Hgb Conc 30.2 g/dL (32-36); Mean Corpuscular Hgb 24.9 pg (27.0-32.0); Mean Corpuscular Volume 82.5 fL (81-99); Mean Platelet Vol. 11.1 fl (6.2-12.0); Monocyte# 0.79 X10^3/uL; Monocyte% 7.8 % (0-10); NRBC Flagged by Analyzer 0 % (0-5); Neutrophil # 6.43 X10^3/uL (2.7-7.7); Neutrophil % 63.9 % (47-70); POSITIVE MORPHOLOGY YES; Platelet Count 318 K/mm3 (150-450); RBC Distribution Width CV 20.6 % (11.6-14.6); RBC Distribution Width SD 61.5 fl (35.1-43.9); Red Blood Count 4.46 M/mm3 (4.2-5.4); White Blood Count 10.1 K/mm3 (4.4-11.0)
[2021-01-11 01:06] LABS: Differential Indicated SCAN CRITERIA MET
[2021-01-11 01:17] LABS: Internal QC Validated? YES +Cl - CLEAR BKGD; Pregnancy, Serum, hCG Quali. NEGATIVE Negative
[2021-01-11 01:46] LABS: Differential Comment SCANNED
[2021-01-11 01:47] LABS: Anisocytosis 1+; Microcytosis 1+
[2021-01-11 01:54] LABS: Mucous, Urine 0 SEEN /hpf (<or=2+); Red Blood Cells-Urine 0 SEEN /hpf (0-5)
[2021-01-11 01:55] LABS: Color, Urine Yellow (Yellow); Glucose, Dipstick Normal (Normal); Ketone-Dipstick Negative (Negative); Leukocyte Esterase-Dipstick 25 /ul (Negative); Nitrite-Dipstick Positive (Negative); Occult Blood-Urine 10 /ul (Negative); Protein-Dipstick 30 mg/dl (Negative); Urine Bilirubin Dipstick Negative (Negative); Urine Clarity Sl. Cloudy (Clear); Urine Urobilinogen 1 mg/dl (Normal)
[2021-01-11 02:08] LABS: Bacteria 3+ /hpf (None Seen); Squamous Epithelial Cells - UA 0-5 SEEN /hpf (5-10); White Blood Cells 0-5 SEEN /hpf (0-5)
--- NOTE | 2021-01-11 02:15 | ED.DCSUM_ITS ---
History of Present Illness Chief Complaint: Flank Pain Informant: Patient - Abdominal Pain/Flank Pain Onset: Hours - 1 Context: Sudden Onset - woke her up from sleep Timing: Continuous, Waxes and wanes Quality: Aching Location: LLQ, Left Flank - and into L low back Current Severity: Moderate Maximum Severity: Severe Worsened by: Nothing Relieved by: Nothing - Nausea/Vomiting/Emesis GI Symptom: Nausea. Negative for: Vomiting - Diarrhea/Melena/Hematochezia GI Symptom: Negative for: Diarrhea, Melena, Hematochezia Associated Symptoms: Negative for: Dysuria, Frequency, Hematuria, Urgency Narrative: 30-year-old female with sudden onset of pain in her left flank going down into her left pelvis but not all the way to the groin, colicky, associated with nausea, she has never had this before. No history of ovarian cyst or torsion. She is not currently sexually active. She had a in the past but no other abdominal surgeries. No fevers or chills, urinary symptoms. - Past Medical History (1) Severe left ventricular hypertrophy Status: Chronic Comment: Per echo 04/25/2018 @ [facility] (2) Hypertension Status: Chronic Past Medical History - Allergies and Home Meds Allergies/Adverse Reactions: Allergies No Known Allergies Allergy (Verified 01/11/21 00:28) Primary Care Physician: Claritza Olmedo MD [Primary Care Provider] - 1 Week if not improving Surgical History: - - Smoking Status: Current every day smoker Review of Systems General: Denies: Chills, Fever, Sweats Eyes: Denies: Visual changes - bilaterally, Diplopia ENT: Denies: Rhinorrhea, Sore throat Cardiovascular: Denies: Chest pain, Palpitations Respiratory: Denies: Dyspnea, Cough, Dyspnea on exertion Gastrointestinal: Reports: Abdominal pain, Nausea. Denies: Vomiting, Diarrhea, Melena, Hematochezia Genitourinary: Denies: Dysuria, Hematuria, Frequency Musculoskeletal: Reports: Back pain. Denies: Extremity Pain Skin: Denies: Rash, Wounds Neurological: Denies: Headache, Weakness, Numbness Physical Exam Vital Signs/Narrative: Vital Signs Temp Pulse Resp BP Pulse Ox 01/11/21 00:25 98.2 F 78 20 H 168/97 H 100 Inital Vital Signs reviewed: Yes General: Well nourished, Well developed, Obese, No Acute Distress Head: Normocephalic, Atraumatic Eyes: Perrl, EOMI ENT: Moist mucous membranes, No rhinorrhea Neck: Supple, Nontender Cardiovascular: Regular rate, Regular rhythm, No murmurs Respiratory: No distress, CTA bilaterally, Chest nontender Abdomen: Soft, Nontender, Nondistended, Normal bowel sounds Back: Nontender, Normal Inspection. Negative for: CVA tenderness Extremities: Nontender, No edema Skin: Normal color, No rash Neurological: Alert, Oriented x3, Cranial nerves II-XII grossly intact, Normal Strength, Normal Sensation, Normal Gait Psychological: Normal affect, Normal Mood Diagnostic/Tx/Re-eval Clinical Impression(s) from Imaging Studies Abdomen/Pelvis CT 01/11/21 00:35 IMPRESSION: Constipation. Multiple gallstones. Otherwise unremarkable CT of the abdomen and pelvis. Electronically Signed: Sarah Art MD at 1:50 EDT , Service support , ADDENDUM: 01/11/21 0222 There is a calcification on image 150 cc, series 2 slightly posterior to the expected position of the left ureter and therefore less likely to represent a ureteral stone. Electronically Signed: Sarah Art MD at 2:15 EDT , Service support , Laboratory Tests 01/11/21 01/11/21 01/11/21 Range/Units 01:45 00:58 00:30 WBC (4.4-11.0) K/mm3 RBC (4.2-5.4) M/mm3 Hgb (12.0-15.0) g/dL Hct (37-47) % MCV (81-99) fL MCH (27.0-32.0) pg MCHC (32-36) g/dL RDW Std Deviation (35.1-43.9) fl RDW Coeff of Erik (11.6-14.6) % Plt Count (150-450) K/mm3 MPV (6.2-12.0) fl Immature Gran % (Auto) (0.0-0.9) % Neut % (Auto) (47-70) % Lymph % (Auto) (19-41) % Cloud % (Auto) (0-10) % Eos % (Auto) (0-5) % Baso % (Auto) (0-1) % Absolute Neuts (auto) (2.0-7.7) X10^3/uL Absolute Lymphs (auto) (0.83-4.51) X10^3/uL Nucleated RBC % (0-5) % Differential Comment Anisocytosis Microcytosis Sodium 136 (136-145) mmol/L Potassium 3.9 (3.5-5.1) mmol/L Chloride 102 (98-107) mmol/L Carbon Dioxide 30.0 (21.0-32.0) mmol/L Anion Gap 4 L (5-15) BUN 37 H (7-18) mg/dL Creatinine 1.30 H (0.55-1.02) mg/dL Estim Creat Clear Calc 50.50 ml/min Est GFR (MDRD) Af Amer 62 (>60) mL/min Est GFR (MDRD) Non-Af 51 L (>60) mL/min BUN/Creatinine Ratio 28.5 H (10-20) RATIO Glucose 97 (74-106) mg/dL Calcium 8.7 (8.5-10.1) mg/dL Serum , Qual NEGATIVE Negative Urine Color Yellow (Yellow) Urine Clarity Sl. Cloudy (Clear) Urine pH 6.0 (5.0 - 8.0) Ur Specific [place] 1.020 (1.002-1.030) Urine Protein 30 H (Negative) mg/dl Urine Glucose (UA) Normal (Normal) mg/dl Urine Ketones Negative (Negative) mg/dl Urine Occult Blood 10 H (Negative) /ul Urine Nitrite Positive H (Negative) Urine Bilirubin Negative (Negative) mg/dL Urine Urobilinogen 1 H (Normal) mg/dl Ur Leukocyte Esterase 25 H (Negative) /ul Urine RBC 0 SEEN (0-5) /hpf Urine WBC 0-5 SEEN (0-5) /hpf Ur Squamous Epith Cells 0-5 SEEN (5-10) /hpf Urine Bacteria 3+ (None Seen) /hpf Urine Mucus 0 SEEN (<or=2+) /hpf 01/11/21 Range/Units 00:30 WBC 10.1 (4.4-11.0) K/mm3 RBC 4.46 (4.2-5.4) M/mm3 Hgb 11.1 L (12.0-15.0) g/dL Hct 36.8 L (37-47) % MCV 82.5 (81-99) fL MCH 24.9 L (27.0-32.0) pg MCHC 30.2 L (32-36) g/dL RDW Std Deviation 61.5 H (35.1-43.9) fl RDW Coeff of Erik 20.6 H (11.6-14.6) % Plt Count 318 (150-450) K/mm3 MPV 11.1 (6.2-12.0) fl Immature Gran % (Auto) 1.200 H (0.0-0.9) % Neut % (Auto) 63.9 (47-70) % Lymph % (Auto) 25.9 (19-41) % Cloud % (Auto) 7.8 (0-10) % Eos % (Auto) 1.0 (0-5) % Baso % (Auto) 0.2 (0-1) % Absolute Neuts (auto) 6.4 (2.0-7.7) X10^3/uL Absolute Lymphs (auto) 2.61 (0.83-4.51) X10^3/uL Nucleated RBC % 0 (0-5) % Differential Comment SCANNED Anisocytosis 1+ Microcytosis 1+ Sodium (136-145) mmol/L Potassium (3.5-5.1) mmol/L Chloride (98-107) mmol/L Carbon Dioxide (21.0-32.0) mmol/L Anion Gap (5-15) BUN (7-18) mg/dL Creatinine (0.55-1.02) mg/dL Estim Creat Clear Calc ml/min Est GFR (MDRD) Af Amer (>60) mL/min Est GFR (MDRD) Non-Af (>60) mL/min BUN/Creatinine Ratio (10-20) RATIO Glucose (74-106) mg/dL Calcium (8.5-10.1) mg/dL Serum , Qual Negative Urine Color (Yellow) Urine Clarity (Clear) Urine pH (5.0 - 8.0) Ur Specific [place] (1.002-1.030) Urine Protein (Negative) mg/dl Urine Glucose (UA) (Normal) mg/dl Urine Ketones (Negative) mg/dl Urine Occult Blood (Negative) /ul Urine Nitrite (Negative) Urine Bilirubin (Negative) mg/dL Urine Urobilinogen (Normal) mg/dl Ur Leukocyte Esterase (Negative) /ul Urine RBC (0-5) /hpf Urine WBC (0-5) /hpf Ur Squamous Epith Cells (5-10) /hpf Urine Bacteria (None Seen) /hpf Urine Mucus (<or=2+) /hpf - Medical Decision Making On my interpretation of the CT abdomen/pelvis that was obtained after negative test, on image #156 there appears to be a 2-3 mm distal ureteral stone. It does not appear to be obstructing as there is no hydronephrosis or hydroureter. Initially radiology did not note this, said that the patient had stool in the colon and multiple gallstones but no signs of cholecystitis which clinically she does not have either. I had radiology reevaluate the imaging. The addendum is above. My interpretation of this is that it is possible that this calcification COULD be in the ureter. Given that she is nontender and pain-free after medication, I do not think she needs an emergent ultrasound to evaluate her ovary, as I think this is not likely to be torsion. I discussed this with them (patient and mother), they are in agreement with expectant management. With IV morphine, Toradol, Zofran, the patient is feeling much better. Expectant management is indicated. She was given urine strainer, prescription for analgesics, and appropriate discharge instructions and reasons to return. With regard to the gallstones, when we discussed those, she and mother admitted that she has had right upper quadrant pain after meals on occasion. Pain is usually gone away after couple hours at most. She was referred to surgery as an outpatient. Ultrasound is not available at the time of the patient's evaluation in the ED as she is here overnight. ED Disposition - Plan for ED Patient: Disposition: Home or Assisted Living Diagnosis: Renal colic on left side, Ureterolithiasis, Cholelithiasis Instructions: ED Kidney Stone w/ Colic, ED Gallstones with Biliary Colic Prescriptions: Hydrocodone Bitart/Apap 5-325 [[place] 5MG-325MG] 1 tablet PO Q4H PRN PRN 2 Days #12 tab PRN Reason: Pain Prescription Printed Ondansetron [Zofran Odt] 8 mg PO Q8H PRN PRN #14 tablet PRN Reason: Nausea Prescription Printed Referrals: Claritza Olmedo MD [Primary Care Provider] - 1 Week if not improving Larisa Shukla MD [STAFF PHYSICIAN] - (call for appt to have further evaluation on your gallbladder stones/pain)
[2021-01-11 02:28] VITALS: RESP 18
[2021-01-11 02:40] VITALS: BP 145/84; PULSE 74; RESP 16; TEMP 36.6; O2SAT 98
== END 2021-01-11 02:45 | disposition home or self-care (01) ==
PROVIDERS: Emergency Provider Emergency Medicine; PCP Family Medicine
DX: N20.2 Calculus of kidney with calculus of ureter (principal); K80.20 Calculus of gallbladder without cholecystitis without obstruction; E66.9 Obesity, unspecified; I11.9 Hypertensive heart disease without heart failure; Z79.899 Other long term (current) drug therapy; F17.200 Nicotine dependence, unspecified, uncomplicated
CPT/HCPCS: 74176; 80048; 81001; 84703; 85025; 96374; 96375; 99284; A4216; J2405

== ENCOUNTER 2021-08-11 10:29 | Day surgery (SDC) | payer MEDICAID, SELFPAY ==
--- NOTE | 2021-08-10 15:59 | EKG12_ITS ---
Test Reason : PRE OP Blood Pressure : / mmHG Vent. Rate : 094 BPM Atrial Rate : 094 BPM P-R Int : 142 ms QRS Dur : 084 ms QT Int : 344 ms P-R-T Axes : 058 073 031 degrees QTc Int : 430 ms Normal sinus rhythm Normal ECG Confirmed by ALEXANDER MONTES, TATIANA ([id number]), supervising film or videotape editor EMERALD RECINOS ([id number]) on 08/12/2021 9:27:18 AM Referred By: Susanne Saucedo Confirmed By:TATIANA MUNOZ MD
[2021-08-10 17:35] LABS: Anion Gap 4 (5-15); BUN 13 mg/dL (7-18); BUN/Creat Ratio 11.4 RATIO (10-20); Calcium,Total 8.9 mg/dL (8.5-10.1); Chloride 106 mmol/L (98-107); Creatinine, Serum 1.14 mg/dL (0.55-1.02); EST Glomerular Filtration Rate 59 mL/min (>60); Est Glom Filt Rate - Afr Amer 72 mL/min (>60); Glucose 97 mg/dL (74-106); Sodium Level 140 mmol/L (136-145)
--- NOTE | 2021-08-10 17:50 | HP.PCM_ITS ---
History and Physical Date of Admission: 08/11/21 [place] Hendrix 1990 HPI: The patient is a 31 year old female presents with epigastric abdominal pain. It has been present intermittently for the past 4 years. She notes sharp epigastric abdominal pain, that is stabbing, it radiates straight to the back. She also has symptoms of nausea, but denies emesis. She denies jaundice or icterus. She notes of no gallbladder disease in the family. She admits to cigarettes use. She had been seen at [facility] ED for the above pain in December 2020, but deferred consideration of gallbladder surgery until presently. She has noted worsening of her symptoms. She had a CT scan at [facility], 01/11/2021, findings of multiple gallstones, also noted to have kidney stones ? PAST MEDICAL HISTORY History of pre-eclampsia in prior , currently ? Hypertension Obesity PAST SURGICAL HISTORY ANESTH, SECTION ? ? ? Current Outpatient Medications lisinopril-hydroCHLOROthiazide (PRINZIDE,ZESTORETIC) 10-12.5 mg per tablet Take by mouth once daily. Cholecalciferol, Vitamin D3, (VITAMIN D) 25 mcg (1,000 unit) cap Take 1,000 Un its by mouth once daily. labetalol (TRANDATE) 300 mg tablet Take 1 tablet by mouth twice daily. (Patient not taking: Reported on 07/20/2021 ibuprofen (MOTRIN) 600 mg tablet Take 1 tablet by mouth every 6 hours as needed for Pain. (Patient not taking: Reported on 07/20/2021 NIFEdipine ER (PROCARDIA XL) 60 mg 24 hr tablet Take 1 tablet by mouth twice daily. (Patient not taking: Reported on 07/20/2021 vit/iron fum/folic ac ( 1 + 1 ORAL) Take 1 tablet by mouth once daily. (Patient not taking: Reported on 07/20/2021 naproxen (NAPROSYN) 500 mg tablet Take 1 tablet by mouth twice daily as needed (for pain/inflammation). Take with food. cyclobenzaprine (FLEXERIL) 10 mg tablet Take 1 tablet by mouth three times daily as needed for Muscle Spasm. ? ALLERGIES: Seasonal Allergies ? PERSONAL HISTORY: ? Smoking status: Current Every Day Smoker ?? Packs/day: 0.25 ? ? Years: 5.00 ? ? Pack years: 1.25 ? ? Types: Cigarettes ? Smokeless tobacco: Never Used Substance Use Topics ? Alcohol use: No ? Drug use: No FAMILY HISTORY non contributory? ? The review of systems data was entered by the nurse and reviewed by me Nursing Notes: Cassandra Poole RN 07/20/2021 1:38 PM Signed REVIEW OF SYSTEMS: General: The patient NOTES fatigue, denies weight loss, denies weight gain, denies feeling hot, and denies feelings of cold. Eyes: The patient denies glaucoma, denies eye injury/surgery, does not wear glasses or contacts. Ear/Nose/Throat: The patient denies allergies, denies hayfever, denies ear infections, and denies bloody noses. Cardiovascular: The patient denies chest pain, denies heart disease, NOTES high blood pressure,denies cardiac stent, denies prior heart attack, denies irregular heart beat, denies high cholesterol, denies poor circulation, denies heart failure, other cardiac issues, denies claudication, denies cold feet, denies peripheral arterial stent. Respiratory: The patient denies tuberculosis, denies pneumonia, denies fr equent cough, denies pulmonary embolism, denies shortness of breath, and denies coughing up blood. Gastrointestinal: The patient denies difficulty swallowing, denies acid reflux, denies ulcers, denies vomiting, denies jaundice/hepatitis, NOTES gallbladder problems, denies black or tarry stools, denies hemorrhoids, denies bleeding from rectum, denies diverticulitis, denies constipation, denies diarrhea, denies loss of stool control, and denies hernias. Kidney/Bladder: The patient NOTES kidney stones, denies urine infections, and denies bloody urine. Skin: The patient denies a history of skin cancer, denies bleeding/changing moles, and denies a history of skin rash. Neurologic: The patient denies a history of epilepsy/convulsions, denies headaches, denies head/spinal injuries, and denies stroke/TIA. Psychiatric: The patient denies psychiatric medications, denies depression, and denies voices, denies substance abuse. Endocrine: The patient denies thyroid disorders, denies diabetes, and denies hormonal problems. Hematologic: The patient denies a history of bruising, denies bleeding, and NOTES anemia, denies blood clots. Infections: The patient denies a history of measles and mumps, denies rheumatic fever, and denies sexually transmitted diseases. Musculoskeletal: The patient denies back pain/injury, denies back problems, denies sciatica, denies knee/foot trouble, denies arthritis, or denies gout. When was patient's last Mammogram screening? None Last Colonoscopy: None Cassandra Poole RN ? PHYSICAL EXAMINATION: General: The patient is 31 year old female, well nourished, well hydrated in no acute distress. The patient is oriented to time, place, and person. VITALS: Blood pressure 140/86, pulse 106, temperature 36.4 ?C (97.5 ?F), temperature source Temporal Artery, weight 97.1 kg (214 lb), Ht: 5'2 , SpO2 100 %, Body mass index is 39.14 kg/m?. Head ? Normocephalic. EOM intact with sclera clear and no icterus noted. Neck - supple with no jugular venous distention noted. Trachea is midline. Lungs ? clear to auscultation. Normal breath sounds. No rales/rhonchi/wheezing noted. No labored breathing noted, such as retractions. No cough heard. Heart ? normal S1 and S2 auscultated. No rubs/clicks/murmurs noted. Regular rate. Abdomen ? soft but with epigastric and RUQ abdominal tenderness, no peritoneal signs noted. Normal bowel sounds. No abdominal bruits noted. Difficult to determine if any masses or organomegaly due to body habitus. Extremities ? no calf tenderness noted. No pitting edema noted. Skin ? normal skin integrity. Neurological ? gait normal, no focal deficits noted. Psych ? calm and appropriate RADIOLOGIC STUDIES: As Noted ? IMPRESSION: epigastric abdominal pain, cholelithiasis ? PLAN: I have discussed the above with the patient. I have offered laparoscopic cholecystectomy, possible cholangiograms I have explained the procedure to the patient. I have counseled the patient as to the risks of the procedure, including but not limited to: infection, bleeding, injury to any blood vessels/nerves, scar tissue, injury to any intrabdominal organs, injury to bowel/bladder, injury to the common bile duct/biliary tree, bile leakage, intraabdominal abscess/bleeding, hernias at incisional sites, wound infections, complications of anesthesia, etc. ? the patient understands. The patient wishes to proceed. I have answered all questions to the patient?s satisfaction and the patient has no further questions. ? Diagnoses: (R10.13) Epigastric abdominal pain (primary encounter diagnosis) (K80.20) Calculus of gallbladder without cholecystitis without obstruction Return to Clinic: The patient is instructed to follow-up with me after the procedure ? Susanne Saucedo MD
[2021-08-11] VITALS (16 sets, daily range): BP systolic 123–157; BP diastolic 68–107; PULSE 60–104; RESP 16–24; TEMP 36.1–36.8; O2SAT 95–100; BMI 37.9
[2021-08-11] MEDS: Lactated Ringers 1,000 ML 75 ML IV (11:13)
--- NOTE | 2021-08-11 12:00 | GALL_PTH ---
PATIENT: KACEY MCDUFFIE LOC: [facility] – [place] U#:[id number] AGE/SX: 31/F ROOM: RE08/11/[address]: Dr. Susanne Saucedo MD : 1990 BED: DIS: 08/11/2021 SPEC #: [id number] RECD: 08/11/21 14:40 STATUS: KYLE SANTOS #: [id number] ABI: 08/11/21 12:[address]: Susanne Saucedo DEPT: SURGICAL PATHOLOGY RECD BY: Brittanie Chopra ENTERED: 08/12/21 10:31 SP TYPE: RAVEN TAVARES DR: Dr. Claritza Olmedo MD Tissues: Gallbladder, NOS Procedures: Surgery Specimen Level III HEADER OPERATION: Laparoscopic cholecystectomy with possible IOC PRE-OP DIAGNOSIS: Epigastric abdominal pain, calculus of gallbladder TISSUE SUBMITTED: Gallbladder MICROSCOPIC DIAGNOSIS Gallbladder, cholecystectomy: Chronic cholecystitis and cholelithiasis. SJ:humphrey 08/13/2021 MICROSCOPIC DESCRIPTION Slides are reviewed. GROSS DESCRIPTION Received is one container labeled with the patient's name and designated gallbladder. The specimen consists of a previously, partially opened gallbladder measuring 8 cm in length and up to 2.5 cm in diameter. The external surface is pink-sanchez, smooth and glistening for the most part. Focally it is granular, hemorrhagic and contains cautery artifact. The gallbladder contains a small amount of green-yellow mucoid bile. Present in the gallbladder and also in the container are multiple multifaceted to irregular greenish-yellow to brownish stones and stone fragments measuring in aggregate 4.5 x 4 x 2 cm and 0.2 to 1.5 cm in greatest dimension. The mucosa is bile-stained and without any mass lesions. The gallbladder wall measures up to 0.3 cm in thickness. Printed Forms Proofreader sections from the gallbladder and the cystic duct are submitted in one cassette. / SJ:rg 08/12/21 TC:3 CPT: 33746
--- NOTE | 2021-08-11 12:41 | RAD_ITS ---
STUDY: INTRAOPERATIVE CHOLANGIOGRAM. REASON FOR EXAM: Female, 31 years old. Laparoscopic cholecystectomy. FLUOROSCOPY TIME (if supplied): ( 8.6 seconds ) minutes/seconds. One image was obtained. TECHNIQUE: Intraoperative cholangiogram was performed by the surgeon. COMPARISON: None. FINDINGS: The visualized intrahepatic biliary ducts are unremarkable. The common bile duct is not dilated. No intraluminal filling defect is seen. There is free flow of contrast into the duodenum. RAD/Cholangiogram/ O R,Initial IMPRESSION: Unremarkable intraoperative cholangiogram. Electronically Signed: Gutierrez Palacios MD at 14:17 EDT , Service support ,
[2021-08-11] MEDS: Lidocaine 1% /Epi 1:100 (20ml) 20 ML Vial (13:14)
--- NOTE | 2021-08-11 13:16 | PCM.OPRPT ---
Report of Operation Date of Procedure: 08/11/21 Pre-Operative Diagnosis: RUQ abdominal pain, cholelithiasis Post-Operative Diagnosis: same Surgery/Procedure Performed:: laparoscopic cholecystectomy with cholangiograms Description of Surgical Findings:: normal cholangiograms Surgeon: Susanne Saucedo engagement manager: Yoly Nguyen Type of Anesthesia: General Anesthesiologist: Samuel Peck Specimen's removed: gallbladder and contents Estimated Blood Loss (mL): 20 ml Fluids Replaced: 1200 ml RL Description of Procedure: After informed consent was given, the patient was brought to the Operating Room. Appropriate time out protocol was followed. The patient was placed in the supine position. The patient was then placed under general endotracheal anesthesia by the anesthesia provider. The abdomen was then prepped with a sterile surgical skin preparation and sterile surgical drapes were placed. An area superior to the umbilical dimple The infraumbilical skin fold was grasped with penetrating clamps and the skin and subcutaneous tissues were infiltrated with 1% xylocaine with epinephrine. A skin incision was then made with a 15 blade scalpel. The anterior abdominal wall was elevated and a Veress needle was carefully inserted into the intraabdominal cavity. It was checked to be in the proper position with a normal saline drop test. A CO2 pneumoperitoneum was then created. Once this was achieved, then the Veress needle was removed and an 11mm trocar was placed in its stead. A 10mm laparoscope was then inserted into the trocar and careful attention was directed to the intraabdominal contents. There was no evidence of injury to any intraabdominal organs from insertion of the Veress needle or the trocar. Under direct visualization, a 5mm subxiphoid trocar and two lateral 5mm right subcostal trocars were placed. The skin and subcutaneous tissues at these sites were infiltrated with 1% xylocaine with epinephrine prior to placement of these trocars. Attention was then directed to the right upper quadrant of the abdomen. Graspers were placed in the lateral trocars to grasp the distal aspect of the gallbladder and direct it cephalad and to grasp the gallbladder at Heaton?s pouch and direct it laterally. There were adhesions of the gallbladder to the liver edges and separation resulted in bleeding from the liver capsule, this was controlled with electrocautery and surgicel placement. Dissection then began on the proximal gallbladder continuing down to the area of the triangle of Calot to bluntly dissect out the cystic duct. The neck of the gallbladder was identified and blunt dissection continued to dissect out a segment of the cystic duct. A clip was then placed on the neck of the gallbladder. A small ductotomy was then made. A Ranfac catheter was brought in through a separate skin incision and placed into the cystic duct. An intraoperative cholangiogram was performed under fluoroscopy. The xray revealed no lesions in the common bile duct, arborization of the biliary tree, and good flow into the duodenum. The Ranfac catheter was then removed and two clips were placed proximal to the ductotomy and the cystic duct was then transected. The cystic artery was visualized and bluntly isolated and then two clips were placed proximally and one clip distally and then it was transected between the proximal and distal clips. The gallbladder was then from the liver bed using electrocautery. Once from the liver bed, it was brought out via the umbilical port in an Endobag. It was then forwarded to pathology for analysis. The liver bed was carefully examined. There was no evidence of bile leakage or bleeding. The cystic duct stump and cystic artery stump had their clips intact and there was no evidence of bile leakage or bleeding. The remainder of the abdomen was grossly normal. The CO2 was released and all trocars removed intact. The periumbilical fascia was approximated with a [id number] 0 vicryl suture. All skin incision were closed with 4-0 monocryl in a subdermal fashion. Cavilol and Steristrips were used to reinforce the skin closure. Sterile dressings were applied to all wounds. Sponge, needle and instrument count was verified and correct at time of skin closure. The patient was extubated and brought to the Recovery Room in stable condition. Complications none noted Admit VTE Documentation VTE Present on Admission: Yes VTE Mechan Device Prophylaxis: SCD's
--- NOTE | 2021-08-11 14:22 | DCINST_ITS ---
Discharge Instructions Follow Up Care Test Results: Test results from this visit will be discussed in further detail at your follow-up appointment, if applicable. Discharge Plan Admission Attending Provider: Susanne Saucedo Primary Care Provider: Claritza Olmedo Instructions Additional Instructions / Restrictions: Recommended pain control regimen - May take 600 mg ibuprofen (Motrin) and then in 3-4 hours, may take 650 mg acetaminophen (Tylenol), then in 3-4 hours may take 600 mg ibuprofen, then in 3- 4 hours may take 650 mg acetaminophen and so on for 2-3 days May take narcotic pain medication for pain that is not controlled by above and at night for comfort through the night Leave dressings in place May shower, do not scrub in the areas of the dressings as they may unravel. May take shower, cover drain site with towel or other such covering to prevent from getting overly wet Do not soak - no tub baths/swimming Ice applied to areas of discomfort may help No lifting/pushing/pulling greater than 20 pounds for a month. Regular diet as tolerated, drink plenty of fluids. Avoid carbonated beverages for a few days as this will cause abdominal bloating and thus discomfort after our surgery. Please call my office for an appointment to see me in 1-2 weeks. Office number is If any questions, please call my office at and ask the tool turret lathe set up operator for the general surgery nurses desk Discharge Orders/Prescriptions Prescriptions: New hydrocodone-acetaminophen 5-325 mg tablet 1 tab PO Q8H 5 Days Qty: 15 RF: 0 No Action lisinopril-hydrochlorothiazide 10-12.5 mg tablet 1 tab PO DAILY RF: 0 Referrals / Follow Up: Claritza Olmedo MD [Primary Care Provider] - Disposition Disposition (needs filled in before D/C Order can be placed): Home, Self Care
== END 2021-08-11 18:37 | disposition home or self-care (01) ==
LOC: SDC 10:31 → AC 10:32
PROVIDERS: Anesthesiology; PCP Family Medicine; Referring Provider Surgery; Visit Provider Surgery
PROC: (CPT 47610; principal; 2021-08-11 11:45)
DX: K80.10 Calculus of gallbladder with chronic cholecystitis without obstruction (principal); I10 Essential (primary) hypertension; E66.9 Obesity, unspecified; Z68.39 Body mass index [BMI] 39.0-39.9, adult; Z87.440 Personal history of urinary (tract) infections; Z87.442 Personal history of urinary calculi; Z79.899 Other long term (current) drug therapy; F17.210 Nicotine dependence, cigarettes, uncomplicated
CPT/HCPCS: 00790; 47563; 36415; 74300; 76000; 80048; 87426; 88304; 93005; C9803; J7120; J2405

== ENCOUNTER → 2022-04-22 | Outpatient (CLI) | payer MEDICAID, SELFPAY ==
[2022-04-22 17:52] LABS: Absolute Lymphocyte Count 2.04 X10^3/uL (0.83-4.51); Absolute Neutrophil Count 4.6 X10^3/uL (2.0-7.7); Basophil# 0.05 X10^3/uL; Basophil% 0.7 % (0-1); Eosinophil# 0.28 X10^3/uL; Eosinophils% 3.8 % (0-5); Hematocrit 35.9 % (37-47); Hemoglobin 11.7 g/dL (12.0-15.0); Lymphocyte # 2.04 X10^3/ul (0.83-4.51); Lymphocyte % 27.9 % (19-41); Mean Corp Hgb Conc 32.6 g/dL (32-36); Mean Corpuscular Hgb 29.3 pg (27.0-32.0); Mean Platelet Vol. 10.8 fl (6.2-12.0); Monocyte# 0.32 X10^3/uL; Monocyte% 4.4 % (0-10); NRBC Flagged by Analyzer 0 % (0-5); Neutrophil % 62.8 % (47-70); Platelet Count 213 K/mm3 (150-450); RBC Distribution Width CV 15.8 % (11.6-14.6); Red Blood Count 3.99 M/mm3 (4.2-5.4); White Blood Count 7.3 K/mm3 (4.4-11.0)
[2022-04-22 18:18] LABS: ALB/GLOB Ratio 1.2 RATIO (0.9-2.4); AST(SGOT) 15 U/L (15-37); Alanine Aminotransfer ALT/SGPT 21 U/L (13-56); Albumin, Serum 3.6 g/dL (3.2-5.0); Alkaline Phosphatase 59 U/L (45-117); Anion Gap 5 (5-15); BUN 12 mg/dL (7-18); BUN/Creat Ratio 10.8 RATIO (10-20); Calcium,Total 9.1 mg/dL (8.5-10.1); Chloride 105 mmol/L (98-107); Creatinine, Serum 1.11 mg/dL (0.55-1.02); EST Glomerular Filtration Rate 61 mL/min (>60); Est Glom Filt Rate - Afr Amer 74 mL/min (>60); Globulin 3.1 g/dL (2.2-4.2); Glucose 102 mg/dL (74-106); Potassium 3.7 mmol/L (3.5-5.1); Protein, Total 6.7 g/dL (6.4-8.2); Sodium Level 138 mmol/L (136-145)
[2022-04-27 11:08] LABS: Age Gdln ACOG Testing 30-65 (.)
[2022-04-29 17:25] LABS: HPV APTIMA, High Risk Negative (Negative); HPV Reflexed? YES, CHARGE PATIENT
== END | disposition home or self-care (01) ==
LOC: MTLAB 16:14
PROVIDERS: PCP Family Medicine; Referring Provider Family Medicine; Visit Provider Family Medicine
DX: Z01.419 Encounter for gynecological examination (general) (routine) without abnormal findings (principal); Z12.4 Encounter for screening for malignant neoplasm of cervix; I10 Essential (primary) hypertension; D50.9 Iron deficiency anemia, unspecified
CPT/HCPCS: 36415; 80053; 85025; 87624; 88175; G0145